=== PATIENT | female | born 1985 | race Hispanic/Latino ===

== ENCOUNTER 2016-09-14 15:01 | Emergency (ER) | payer OTHER ==
[2016-09-14] MEDS ORDERED: HYDROcodone/Acetaminophen 10/325 mg Tablet ONE (16:08)
[2016-09-14] MEDS ORDERED: Cephalexin 500 MG CAP ONE (16:08)
[2016-09-14] MEDS ORDERED: Naproxen 500 MG TAB ONE (16:08)
== END 2016-09-14 16:21 | disposition home or self-care (01) ==
LOC: MADERS 15:01
DX: S01.81XA Laceration without foreign body of other part of head, initial encounter (principal); S91.012A Laceration without foreign body, left ankle, initial encounter; Z86.14 Personal history of Methicillin resistant Staphylococcus aureus infection; Z87.440 Personal history of urinary (tract) infections; W20.8XXA Other cause of strike by thrown, projected or falling object, initial encounter
CPT/HCPCS: 12011

== ENCOUNTER 2017-05-22 23:02 | Emergency (ER) | payer OTHER, SELFPAY ==
[2017-05-22 23:33] LABS: Pregnancy Test - Urine (BHCG) Negative (Negative); Pregu Control Bar Appear? YES (CONTROL BAR)
[2017-05-22 23:34] LABS: Pregu Control Background? CLEAR/WHITE (CLR/WHITE)
[2017-05-23] MEDS ORDERED: Oseltamivir 75 MG CAP ONE (00:04)
== END 2017-05-23 00:07 | disposition home or self-care (01) ==
LOC: MADERS 23:02
DX: J11.1 Influenza due to unidentified influenza virus with other respiratory manifestations (principal)
CPT/HCPCS: 81025; 99283

== ENCOUNTER 2017-11-04 15:27 | Emergency (ER) | payer SELFPAY ==
[2017-11-04 15:55] LABS: Bilirubin Negative (Negative); Blood, Urine Trace (Negative); Clarity Cloudy (Clear); Glucose, Urine (Dipstick) Negative (Negative); Leukocyte Moderate (Negative); Nitrite Positive (Negative); Pregnancy Test - Urine (BHCG) Negative (Negative); Pregu Control Background? CLEAR/WHITE (CLR/WHITE); Pregu Control Bar Appear? YES (CONTROL BAR); Protein, Urine (Dipstick) Negative (Neg-Trace); Specific Gravity 1.015 (1.002-1.036); Specific Gravity, Urine 1.015 (1.005-1.030); Urobilinogen 0.2 mg/dL (0.2-1.0); pH, Urine 5.5 (5.0-9.0)
[2017-11-04 15:58] LABS: Bacteria/HPF 2+ HPF (None Seen)
[2017-11-04] MEDS ORDERED: Lidocaine 1% 20 ML MDV ONE (16:03)
[2017-11-04] MEDS ORDERED: cefTRIAXone\\ROCEPHIN 1 GM VIAL ONE (16:03)
[2017-11-04] MEDS ORDERED: Ondansetron ODT 4 MG TAB ONE (16:03)
== END 2017-11-04 16:25 | disposition home or self-care (01) ==
LOC: MADERS 15:27
DX: N39.0 Urinary tract infection, site not specified (principal)
CPT/HCPCS: 81003; 81015; 81025; 96372; J0696; J2001; Q0162

== ENCOUNTER 2023-01-19 12:25 | Emergency (ER) | payer MEDICAID, SELFPAY | END 2023-01-19 13:01 | disposition left against medical advice (07) | LOC: MADERS 12:25 | DX: Z53.21 Procedure and treatment not carried out due to patient leaving prior to being seen by health care provider (principal) ==

== ENCOUNTER 2023-01-19 14:48 | Emergency (ER) | payer MEDICAID, SELFPAY ==
[2023-01-19] MEDS ORDERED: Bupivacaine PF 0.5% 30 ML VIAL ONE (16:50)
[2023-01-19] MEDS ORDERED: Clindamycin 150 MG CAP ONE (16:57)
[2023-01-19] MEDS ORDERED: predniSONE 20 MG TAB ONE (16:57)
== END 2023-01-19 17:34 | disposition home or self-care (01) ==
LOC: MADERS 14:48
DX: K04.7 Periapical abscess without sinus (principal)
CPT/HCPCS: 99282; J7512; S0020